=== PATIENT | male | born 2000 | race African-American/Black ===

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

== ENCOUNTER 2020-07-30 08:44 | Emergency (ER) | payer MEDICAID, OTHER ==
[~2020-07-30] VITALS: Ht 188 cm; Wt 75.0 kg
[2020-07-30 09:02] VITALS: BP 112/64
[2020-07-30] MEDS ORDERED: PERM60CR4 TP (09:26)
[2020-07-30] MEDS ORDERED: HYDR453.3 TP (09:26)
[2020-07-30] MEDS ORDERED: DIPH25CA83 MT (09:26)
== END 2020-07-30 09:34 | disposition home or self-care (01) ==
LOC: ER 08:44
DX: B86 Scabies (principal); Z88.0 Allergy status to penicillin
CPT/HCPCS: 99282

== ENCOUNTER 2020-09-05 16:36 | Emergency (ER) | payer OTHER ==
[~2020-09-05] VITALS: Ht 188 cm; Wt 67.0 kg
[~2020-09-05 16:36] MED LIST: DIPH25CA83 MT; HYDR453.3 TP; PERM60CR4 TP
[2020-09-05] MEDS ORDERED: VISCOUS LIDOCAINE 2% 15 ML UDC MM STA (18:46)
[2020-09-05] MEDS ORDERED: ONDANSETRON HCL 4MG TABLET PO ONE (19:00)
[2020-09-05] MEDS ORDERED: ONDA4TAB5 MT (19:18)
[2020-09-05 19:38] VITALS: BP 129/67
== END 2020-09-05 19:38 | disposition home or self-care (01) ==
LOC: ER 16:36
DX: K52.9 Noninfective gastroenteritis and colitis, unspecified (principal); Z88.0 Allergy status to penicillin
CPT/HCPCS: 99283; Q0162